=== PATIENT | male | born 1950 | race Caucasian/White ===

== ENCOUNTER → 2016-05-02 13:20 | Emergency (ER) | payer OTHER ==
[~2016-05-02 13:20] MED LIST: NS 0.9% IV ONE; PROTAMINE SULFATE IV ONE
--- NOTE | 2016-05-02 14:25 | RAD ---
Indication: Fall; altered mental status. Comparison: October 13, 2015 MRI. October 13, 2015 CT. Technique: Noncontrast CT vertex of skull through foramen magnum. Report: Large region of encephalomalacia involving the RIGHT middle cerebral artery distribution at the temporal and parietal lobes with associated small region of dystrophic calcification without change. Associated ex vacuo dilatation of the RIGHT lateral ventricle. Hyperdense 2.8 x 2.2 cm acute or subacute intra-axial hematoma at the posterior aspect of the LEFT temporal lobe. Associated effacement of the LEFT temporal lobe sulci and small volume of subarachnoid hemorrhage. Additionally small volume of subdural hemorrhage layers along the tentorium cerebelli. Negative for midline shift or effacement of the basal cisterns. Decreased density in the periventricular and subcortical white matter while nonspecific is most likely due to chronic microangiopathy. Unremarkable orbital contents. Negative for calvarial or skull base fracture. Small RIGHT parietal scalp hematoma.. IMPRESSION: 1. Acute or subacute intra-axial hematoma at the posterior aspect of the LEFT temporal lobe. Associated effacement of the LEFT temporal lobe sulci and small volume of subarachnoid and subdural hemorrhage. Negative for midline shift or effacement of the basal cisterns. This may reflect contrecoup injury given small RIGHT parietal scalp hematoma. Alternative etiologies include hypertensive hemorrhage or hemorrhage secondary to amyloid angiopathy. 2. Extensive grossly unchanged RIGHT middle cerebral artery distribution encephalomalacia reflecting a previous infarct. Involutional change and stigmata of chronic small vessel ischemic disease. Results discussed with Dr. Hernandez 05/02/2016 2:20 PM EDT
[2016-05-02 15:17] LABS: Hematocrit 42 % (42-52); Hemoglobin 13.4 g/dl (14.0-18.0); Mean Corpuscular HGB Conc 32 g/dl (31-36); Mean Corpuscular Hemoglobin 29 pg (27-31); Mean Corpuscular Volume 90 fL (80-94); Mean Platelet Volume 8 um3 (7.4-10.4); Red Cell Distribution Width 15 % (10.5-15)
--- NOTE | 2016-05-02 15:20 | ED ---
Guerrero Quintero SooYoung, scribed for Romel Hernandez MD on 05/02/16 at 1344 . Altered Mental Status - HPI Summary HPI Summary: LEVEL 5 CAVEAT: Limited HPI due to patient condition, dementia/AMS. A 65 y/o BIBA presents to ED after an unwitnessed fall onset approx 0900. Pert PMHx: dementia. Pt has a small lac to the R-side of his head. Pt is on blood thinners. His change in behavior is that pt is typically combative but is not currently. - History Of Current Complaint Stated Complaint: FALL AMS Time Seen by Provider: 05/02/16 13:31 Hx Obtained From: EMS, Medical Records - Allergies/Home Medications Allergies/Adverse Reactions: Allergies Allergy/AdvReac Type Severity Reaction Status Date / Time No Known Allergies Allergy Verified 10/13/15 09:56 PMH/Surg Hx/FS Hx/Imm Hx Previously Healthy: No - LEVEL 5 CAVEAT: Limited PMHx due to patient condition, dementia/AMS. Cardiovascular History: Reports: Hx Hypertension Denies: Hx Pacemaker/ICD Musculoskeletal History: Reports: Hx Arthritis - hands Sensory History: Reports: Hx Contacts or Glasses - at home, Hx Deafness Denies: Hx Hearing Aid Opthamlomology History: Reports: Hx Contacts or Glasses - at home Psychiatric History: Denies: Hx Panic Disorder - Immunization History Date of Tetanus Vaccine: unknown Date of Influenza Vaccine: never - Family History Known Family History: Positive: Unknown - Pt denies having family - Social History Occupation: Disabled Alcohol Use: None Hx Substance Use: Yes Substance Use Type: Reports: Marijuana Substance Use Comment - Amount & Last Used: 2-4 joints a day, daily user Hx Tobacco Use: Yes - ALSO WEED Smoking Status (MU): Current Every Day Smoker Type: Cigarettes Have You Smoked in the Last Year: Yes Review of Systems - ROS Summary Review of Systems Summary: LEVEL 5 CAVEAT: Limited ROS due to patient condition, dementia/AMS. Positive: Other - lac to R-side of head All Other Systems Reviewed And Are Negative: Yes Physical Exam - Summary Physical Exam Summary: LEVEL 5 CAVEAT: Limited PE due to patient condition, dementia/AMS. Triage Information Reviewed: Yes Vital Signs On Initial Exam: Initial Vitals Temp Pulse Resp BP Pulse Ox 98.4 F 85 16 138/76 97 05/02/16 13:42 05/02/16 13:42 05/02/16 13:42 05/02/16 13:42 05/02/16 13:42 Vital Signs Reviewed: Yes Completion Of Physical Exam Limited Due To: Dementia, Altered Mental Status Appearance: Positive: Well-Appearing, No Pain Distress Skin: Positive: Warm, Skin Color Reflects Adequate Perfusion, Dry, Other - pos: small lac on R posterior occipital area; small skin tear on R elbow and R posterior shoulder Eyes: Positive: Normal ENT: Positive: Normal ENT inspection Neck: Positive: Supple, Nontender Respiratory/Lung Sounds: Positive: Clear to Auscultation, Breath Sounds Present Cardiovascular: Positive: RRR Abdomen Description: Positive: Nontender, Soft Bowel Sounds: Positive: Present Musculoskeletal: Positive: Strength/ROM Intact - FROM Diagnostics - Vital Signs Vital Signs Temp Pulse Resp BP Pulse Ox 05/02/16 13:42 98.4 F 85 16 138/76 97 - Laboratory Result Diagrams: 05/02/16 15:05 Lab Statement: Any lab studies that have been ordered have been reviewed, and results considered in the medical decision making process. - CT BRAIN CT CT Interpretation: Positive (See Comments) - IMPRESSION: 1. Acute or subacute intra-axial hematoma at the posterior aspect of the LEFT temporal lobe. Associated effacement of the LEFT temporal lobe sulci and small volume of subarachnoid and subdural hemorrhage. Negative for midline shift or effacement of the basal cisterns. This may reflect contrecoup injury given small RIGHT parietal scalp hematoma. Alternative etiologies include hypertensive hemorrhage or hemorrhage secondary to amyloid angiopathy. 2. Extensive grossly unchanged RIGHT middle cerebral artery distribution encephalomalacia reflecting a previous infarct. Involutional change and stigmata of chronic small vessel ischemic disease. CT Interpretation Completed By: Radiologist Altered Mental Statu Course/Dx - Course Course Of Treatment: Mr. Kumar was sent over after a fall and head injury because he is not as combative as usual. He has dementia and is normally irascible. He is a full code. On arrival, it was noted that he has a small occipitoparietal hematoma and laceration. He was sent for CT and it revealed a contrecoup intracerebral hemorrhage. Dr. Serna is not aeronautical engineering officer this weekend and therefore [facility] was contacted and accepted transfer. Mr. Kumar is on lovenox 40 mgs SQ every evening. Since this is a low dose and it was 18 hours ago I am not giving him reversal agents at this time. - Diagnoses Discharge Diagnoses: Intracerebral hemorrhage - Provider Notifications Discussed Care Of Patient With: Dr. Fair at [facility] Time Discussed With Above Provider: 14:28 Instructed by Provider To: Transfer Admit/Transition Orders Completed By ED Provider: Yes Reason For Transfer: [place] [facility] [place] aeronautical engineering officer. Discharge - Discharge Plan Condition: Stable Disposition: TRANS HIGHER LVL OF CARE FAC Referrals: No Primary Care Phys,NOPCP [Primary Care Provider] - The documentation as recorded by the Guerrero peter SooYoung accurately reflects the service I personally performed and the decisions made by me, Romel Hernandez MD.
[2016-05-02 15:30] VITALS: BP 140/78
[2016-05-02 15:31] LABS: Albumin 3.5 g/dL (3.2-5.2); BUN/Creatinine Ratio 24.6 (8-20); Calcium 9.6 mg/dL (8.6-10.3); EGFR African American 183.4 (>60); EGFR Non-African American 142.6 (>60); Globulin 4.8 g/dL (2-4); Potassium 4.3 mmol/L (3.5-5.0); Total Bilirubin 0.5 mg/dL (0.2-1.0); Total Protein 8.3 g/dL (6.4-8.9)
== END | disposition short-term general hospital (02) ==
LOC: ED 13:20
DX: S06.300A Unspecified focal traumatic brain injury without loss of consciousness, initial encounter (principal); S01.91XA Laceration without foreign body of unspecified part of head, initial encounter; F03.90 Unspecified dementia, unspecified severity, without behavioral disturbance, psychotic disturbance, mood disturbance, and anxiety; W19.XXXA Unspecified fall, initial encounter; Y92.9 Unspecified place or not applicable; Z79.01 Long term (current) use of anticoagulants; F17.210 Nicotine dependence, cigarettes, uncomplicated
CPT/HCPCS: 36415; 70450; 80053; 85025; 85610; 99283

== ENCOUNTER 2016-05-17 09:03 | Emergency (ER) | payer OTHER ==
[2016-05-17 10:08] LABS: Hematocrit 47 % (42-52); Hemoglobin 15.2 g/dl (14.0-18.0); Mean Corpuscular HGB Conc 33 g/dl (31-36); Mean Corpuscular Hemoglobin 29 pg (27-31); Mean Corpuscular Volume 89 fL (80-94); Mean Platelet Volume 9 um3 (7.4-10.4); Red Blood Count 5.23 10^6/ul (4.0-5.4); Red Cell Distribution Width 15 % (10.5-15)
[2016-05-17 10:17] LABS: Potassium 4.1 mmol/L (3.5-5.0)
[2016-05-17 10:56] LABS: Albumin 3.4 g/dL (3.2-5.2); BUN/Creatinine Ratio 26.2 (8-20); Calcium 9.5 mg/dL (8.6-10.3); EGFR African American 169.6 (>60); EGFR Non-African American 131.8 (>60); Globulin 4.5 g/dL (2-4); Total Bilirubin 0.6 mg/dL (0.2-1.0); Total Protein 7.9 g/dL (6.4-8.9)
--- NOTE | 2016-05-17 10:59 | ED ---
Head Injury - HPI Summary HPI Summary: Patient is a resident of [facility] with a history of frequent falls. He is BIBA for a possible fall today due to the laceration to his left forehead. Patient is combative at baseline and if is not combative, he is considered to be altered. Patient is not verbal. - History Of Current Complaint Chief Complaint: EDLacSutureRecheck Stated Complaint: FALL / HEAD LAC Time Seen by Provider: 05/17/16 09:24 Hx Obtained From: EMS Hx From Patient Unobtainable Due To: Dementia Mechanism Of Injury: Fall From A Standing Position Onset/Duration: Started Hours Ago Onset of Pain: Immediate Severity Currently: Moderate Severity Initially: Mild Pain Intensity: 0 Location of Head Injury: Frontal Location: Discrete At: - mid forehead Character: Sharp, Aching Aggravating Factor(s): Movement Associated Signs And Symptoms: Swelling, Bruising - Allergies/Home Medications Allergies/Adverse Reactions: Allergies Allergy/AdvReac Type Severity Reaction Status Date / Time No Known Allergies Allergy Verified 10/13/15 09:56 PMH/Surg Hx/FS Hx/Imm Hx Cardiovascular History: Reports: Hx Hypertension Denies: Hx Pacemaker/ICD Musculoskeletal History: Reports: Hx Arthritis - hands Sensory History: Reports: Hx Contacts or Glasses - at home, Hx Deafness Denies: Hx Hearing Aid Opthamlomology History: Reports: Hx Contacts or Glasses - at home Psychiatric History: Denies: Hx Panic Disorder - Immunization History Date of Tetanus Vaccine: unknown Date of Influenza Vaccine: never Infectious Disease History: No Infectious Disease History: Denies: Traveled Outside the [place] in Last 30 Days - Family History Known Family History: Positive: Unknown - Pt denies having family - Social History Occupation: Disabled Lives: At [employer] Alcohol Use: None Hx Substance Use: Yes Substance Use Type: Reports: Marijuana Substance Use Comment - Amount & Last Used: 2-4 joints a day, daily user Hx Tobacco Use: Yes - ALSO WEED Smoking Status (MU): Current Every Day Smoker Type: Cigarettes Have You Smoked in the Last Year: Yes Review of Systems Negative: Photophobia, Blurred Vision Positive: Edema - forehead Positive: Bruising - forehead and nose, Other - laceration mid forehead and nasal bridge All Other Systems Reviewed And Are Negative: Yes Physical Exam Triage Information Reviewed: Yes Vital Signs On Initial Exam: Initial Vitals Temp Pulse Resp BP Pulse Ox 98.1 F 79 18 116/79 97 05/17/16 09:13 05/17/16 09:13 05/17/16 09:13 05/17/16 09:13 05/17/16 09:13 Vital Signs Reviewed: Yes Appearance: Positive: Well-Appearing, Well-Nourished, Pain Distress Skin: Positive: Warm, Skin Color Reflects Adequate Perfusion, Dry, Tender - 2cm laceration to forehead; 1cm laceration to nasal bridge, Soft Head/Face: Positive: Normal Head/Face Inspection Eyes: Positive: EOMI, CLAUDIA, Conjunctiva Clear ENT: Positive: Hearing grossly normal, Pharynx normal, TMs normal Neck: Positive: Supple, Nontender Respiratory/Lung Sounds: Positive: Clear to Auscultation, Breath Sounds Present Cardiovascular: Positive: RRR Abdomen Description: Positive: Nontender, Soft Bowel Sounds: Positive: Present Musculoskeletal: Positive: Strength/ROM Intact Neurological: Positive: Sensory/Motor Intact, CN Intact II-III - grossly. Negative: Alert, Oriented to Person Place, Time - baseline Psychiatric: Positive: Normal - confrontational at baseline AVPU Assessment: Alert - Hughes Coma Scale Coma Scale Total: 12 Procedures - Laceration/Wound Repair 1 Location: face Description: Linear Anesthesia: Local, 2.0%, Lido, Epi Length, Depth and Shape: 2 cm long, 4mm deep, 3mm wide Betadine Prep?: No Irrigated w/ Saline (ccs): 200 Laceration/Wound Explored: clean Closure: Single Layer Debridement: minimal Suture Type: Nylon - 6.0 Number of Sutures: 7 Layer Closure?: No Sterile Dressing Applied?: Yes 2 Location: face Description: Linear Length, Depth and Shape: 1 cm long, 1mm wide, 1mm deep Betadine Prep?: No Irrigated w/ Saline (ccs): 100 Laceration/Wound Explored: clean Closure: SteriStrips - 2 Debridement: minimal Layer Closure?: No Sterile Dressing Applied?: No Diagnostics - Vital Signs Vital Signs Temp Pulse Resp BP Pulse Ox 05/17/16 09:13 98.1 F 79 18 116/79 97 - Laboratory Lab Results: Lab Results 05/17/16 05/17/16 05/17/16 Range/Units 09:55 09:55 09:55 WBC 7.0 (3.5-10.8) 10^3/ul RBC 5.23 (4.0-5.4) 10^6/ul Hgb 15.2 (14.0-18.0) g/dl Hct 47 (42-52) % MCV 89 (80-94) fL MCH 29 (27-31) pg MCHC 33 (31-36) g/dl RDW 15 (10.5-15) % Plt Count 209 (150-450) 10^3/ul MPV 9 (7.4-10.4) um3 Neut % (Auto) 71.5 (38-83) % Lymph % (Auto) 19.1 L (25-47) % Ceiba % (Auto) 8.0 (1-9) % Eos % (Auto) 0.5 (0-6) % Baso % (Auto) 0.9 (0-2) % Absolute Neuts (auto) 5.0 (1.5-7.7) 10^3/ul Absolute Lymphs (auto) 1.3 (1.0-4.8) 10^3/ul Absolute Monos (auto) 0.6 (0-0.8) 10^3/ul Absolute Eos (auto) 0 (0-0.6) 10^3/ul Absolute Basos (auto) 0.1 (0-0.2) 10^3/ul Absolute Nucleated RBC 0 10^3/ul Nucleated RBC % 0.1 INR (Anticoag Therapy) 1.10 (0.89-1.11) Sodium 137 (133-145) mmol/L Potassium 4.1 (3.5-5.0) mmol/L Chloride 103 (101-111) mmol/L Carbon Dioxide Pending Anion Gap Pending BUN Pending Creatinine Pending Est GFR ( Amer) Pending Est GFR (Non-Af Amer) Pending BUN/Creatinine Ratio Pending Glucose Pending Calcium Pending Total Bilirubin Pending AST Pending ALT Pending Alkaline Phosphatase Pending Total Protein Pending Albumin Pending Globulin Pending Albumin/Globulin Ratio Pending Result Diagrams: 05/17/16 09:55 05/17/16 09:55 Lab Statement: Any lab studies that have been ordered have been reviewed, and results considered in the medical decision making process. - CT No standard instances CT Interpretation: No Acute Changes CT Interpretation Completed By: Radiologist Head Injury Course/Dx - Diagnoses Differential Diagnosis/HQI/PQRI: Cerebral Contusion, Cervical Sprain, Contusion , Hematoma, Intracranial Bleed, Nasal Fracture, Skull Fracture Provider Diagnoses: Forehead laceration, Laceration of nose, Head injury Discharge - Discharge Plan Condition: Stable Disposition: HOME Patient Education Materials: Head Injury (ED), Facial Laceration (ED) Additional Instructions: Keep your dressing clean, dry and in place for the next 24 hours. You may then remove and shower. Pat dry and cover with a clean, dry band-aid if you are going to be in a "dirty" environment, otherwise it can remain open to air. Do not soak the wound in any body of water until the sutures are removed. Elevate the head above your heart and Tylenol to reduce pain and swelling. Follow-up with your primary care provider or return to the emergency department in 5 days for suture removal. Return to the emergency department sooner if your symptoms worsen.
--- NOTE | 2016-05-17 11:07 | RAD ---
INDICATION: Frequent falls. CVA. COMPARISON: CT brain May 02, 2016 TECHNIQUE: Noncontrast axial source images were acquired from the skull base to the vertex. FINDINGS: Ventricles/sulci: There is cortical atrophy with compensatory dilatation of the CSF spaces. Brain parenchyma: Old right posterior parietal infarct with encephalomalacia. There are associated dystrophic calcifications there are chronic microvascular periventricular and subcortical white matter changes as well. Intracranial hemorrhage: Resolving left temporoparietal intracranial hemorrhage. Extra-axial spaces: Chronic hematoma. Hematoma with interval increase in size using mild localized mass effect. Calvarium: There is no calvarial fracture or other calvarial abnormality. Scalp: There is no evidence of scalp or extracalvarial soft tissue abnormality. Paranasal sinuses/mastoid: Sinusitis with acute and chronic findings. Air-fluid levels are present in the sphenoid air cells. Other: Several tiny punctate foci of intracranial air on the cortical surface is a left frontal region and near the left orbital apex. This is of unknown significance. IMPRESSION: 1. Old right posterior parietal infarct in addition to chronic microvascular ischemic changes. 2. Resolving left temporoparietal intracranial hemorrhage. 3. Interval increase in size in chronic left frontoparietal subdural hematoma. 4. Scattered pneumocephalus of unknown significance. Suggest follow-up.
[2016-05-17 14:39] VITALS: BP 114/66
== END 2016-05-17 11:55 | disposition home or self-care (01) ==
LOC: ED 09:03
DX: S00.83XA Contusion of other part of head, initial encounter (principal); R60.0 Localized edema; S01.81XA Laceration without foreign body of other part of head, initial encounter; W19.XXXA Unspecified fall, initial encounter; Y93.9 Activity, unspecified; Y92.9 Unspecified place or not applicable; F80.9 Developmental disorder of speech and language, unspecified; F17.210 Nicotine dependence, cigarettes, uncomplicated
CPT/HCPCS: 12011; 36415; 70450; 80053; 83605; 85025; 85610; 99284

== ENCOUNTER 2016-05-18 02:41 | Emergency (ER) | payer OTHER ==
--- NOTE | 2016-05-18 03:12 | ED ---
London Quintero Salem, scribed for Shaan Rahman MD on 05/18/16 at 0250 . Adult Trauma - HPI Summary HPI Summary: Patient is a 65 y/o male who presents to the ED per EMS s/p a fall. Pt is a resident of [facility] and has a hx of frequent falls. He was also in the ED earlier today for another fall. Per EMS, pt had unequal pupils after fall, but EMS was not able to confirm complaint. - History of Current Complaint Chief Complaint: EDHeadInjury Stated Complaint: FALL Time Seen by Provider: 05/18/16 02:43 Hx Obtained From: EMS Mechanism of Injury: Fall Loss of Consciousness: no loss of consciousness Onset/Duration: Started Minutes Ago, Still Present Onset Severity: Moderate Current Severity: Moderate Pain Intensity: 0 Pain Scale Used: 0-10 Numeric Aggravating Factor(s): Nothing Alleviating Factor(s): Nothing Associated Signs & Symptoms: Positive: Negative - Additional Pertinent History Primary Care Physician: [id number] - Allergy/Home Medications Allergies/Adverse Reactions: Allergies Allergy/AdvReac Type Severity Reaction Status Date / Time No Known Allergies Allergy Verified 10/13/15 09:56 PMH/Surg Hx/FS Hx/Imm Hx Cardiovascular History: Reports: Hx Hypertension Denies: Hx Pacemaker/ICD Musculoskeletal History: Reports: Hx Arthritis - hands Sensory History: Reports: Hx Contacts or Glasses - at home, Hx Deafness Denies: Hx Hearing Aid Opthamlomology History: Reports: Hx Contacts or Glasses - at home Psychiatric History: Denies: Hx Panic Disorder - Immunization History Date of Tetanus Vaccine: unknown Date of Influenza Vaccine: never Infectious Disease History: No Infectious Disease History: Denies: Traveled Outside the [place] in Last 30 Days - Family History Known Family History: Positive: Unknown - Pt denies having family. - Social History Alcohol Use: None Hx Substance Use: Yes Substance Use Type: Reports: Marijuana Substance Use Comment - Amount & Last Used: 2-4 joints a day, daily user Hx Tobacco Use: Yes - ALSO WEED Smoking Status (MU): Current Every Day Smoker Type: Cigarettes Have You Smoked in the Last Year: Yes Review of Systems Negative: Fever Positive: Other - Fall, possible injury to head. All Other Systems Reviewed And Are Negative: Yes Physical Exam Triage Information Reviewed: Yes Vital Signs On Initial Exam: Initial Vitals Temp Pulse Resp BP Pulse Ox 97.1 F 80 20 99/72 93 05/18/16 02:45 05/18/16 02:45 05/18/16 02:45 05/18/16 02:45 05/18/16 02:45 Vital Signs Reviewed: Yes Appearance: Positive: No Pain Distress, Thin Skin: Positive: Warm Head/Face: Positive: Other - healing scalp lac Eyes: Positive: CLAUDIA ENT: Positive: Hearing grossly normal Neck: Positive: Supple Respiratory/Lung Sounds: Positive: Breath Sounds Present, Decreased Breath Sounds Cardiovascular: Positive: RRR Abdomen Description: Positive: Nontender, Soft Bowel Sounds: Positive: Present Musculoskeletal: Positive: Strength/ROM Intact Neurological: Positive: Sensory/Motor Intact Diagnostics - Vital Signs Vital Signs Temp Pulse Resp BP Pulse Ox 05/18/16 02:45 97.1 F 80 20 99/72 93 - Laboratory Lab Statement: Any lab studies that have been ordered have been reviewed, and results considered in the medical decision making process. - CT BRAIN CT Interpretation Completed By: Radiologist - IMPRESSION: Acute to subacute infract left occipital and left temporal lobes, not significantly changed compared to 05/17/16. Tiny hyperdensities within infract could represent minimal hemorrhagic transformation versus artifact; advise continued follow-up. Bilateral subdural hygromas, 1sm think on left 8mm think on right. Right-sided extra-axial collections is new and could be secondary to trauma. No acute extra- axial hemorrhage. Stable 4 mm rightward midline shift that is probably chronic. Small pneumoecephalus no longer seen. Chronic infract right occipital and right parietal lobes with calcifications in parietal lobe. Age-related involutional changes. NO skull fracture. Right nasal fracture, possible chronic. Minimal bilateral scalp swelling appearing. Inflammation paranasal sinuses, including fluid in sphenoid sinuses. Visualized mastoid air cells clear. Adult Trauma Course/Dx - Course Course Of Treatment: 65 y/o male presents after a fall. CT was negative. Pt will be DC'd. - Diagnoses Provider Diagnoses: Closed head injury Discharge - Discharge Plan Condition: Fair Disposition: HOME Patient Education Materials: Head Injury (ED) Referrals: [facility] [Outside] Additional Instructions: FULL PRECAUTION. DO NOT ALLOW PT TO WANDER. The documentation as recorded by the London peter Salem accurately reflects the service I personally performed and the decisions made by me, Shaan Rahman MD.
[2016-05-18 05:09] VITALS: BP 124/68
--- NOTE | 2016-05-18 08:21 | RAD ---
INDICATION: Trauma. COMPARISON: Comparison is made with prior CTs of the brain from May 02, 2016 and May 17, 2016. TECHNIQUE: Contiguous axial sections of the brain were obtained from the skull base to the vertex without contrast. FINDINGS: There are bilateral subdural hygromas. The subdural hygroma on the left side appears unchanged and the subdural hygroma on the right side appears new. These measure approximately 0.8 cm each. There is a moderate to large area of encephalomalacia present in the posterior right parietal and adjacent temporal lobes most consistent with an old infarct. There is focal decreased density in the left temporal lobe. There was a prior intraparenchymal hematoma in this region. Best seen on the study from May 02, 2016. There are minimal residual hyperdensity is made which likely represent resolving hematoma. Recommend close follow-up. There is focal soft tissue swelling in the scalp anterior to the left frontal bone and posterior to the right parietal bone. No fracture is seen. The visualized portion of the paranasal sinuses and mastoid air cells appear clear. IMPRESSION: 1. BILATERAL SUBDURAL HYGROMAS NEW ON THE RIGHT, UNCHANGED ON THE LEFT. THE RIGHT-SIDED SUBDURAL HYGROMA MAY BE SECONDARY TO TRAUMA. 2. HYPODENSE AREA IN THE RIGHT TEMPORAL LOBE LIKELY REPRESENTING AN EVOLVING HEMORRHAGIC INFARCT ALTHOUGH NONSPECIFIC. RECOMMEND CLOSE FOLLOW-UP. IF THIS DOES NOT RESOLVE CONSIDER MR IMAGING. 3. MODERATE TO LARGE OLD RIGHT PARIETAL LOBE INFARCT.
== END 2016-05-18 05:08 | disposition home or self-care (01) ==
LOC: ED 02:41
DX: S09.90XA Unspecified injury of head, initial encounter (principal); W19.XXXA Unspecified fall, initial encounter; Y93.9 Activity, unspecified; Y92.9 Unspecified place or not applicable; F17.210 Nicotine dependence, cigarettes, uncomplicated
CPT/HCPCS: 70450; 99284

== ENCOUNTER 2016-05-30 13:03 | Emergency (ER) | payer OTHER ==
--- NOTE | 2016-05-30 14:48 | RAD ---
HISTORY: Altered mental status, status post fall COMPARISONS: May 18, 2016 TECHNIQUE: Multiple contiguous axial CT scans were obtained of the head without intravenous contrast. FINDINGS: The study is limited by patient motion artifact. HEMORRHAGE/INFARCT: There is no parenchymal hemorrhage or acute infarct. MASSES/SHIFT: There is no mass or shift. EXTRA-AXIAL SPACES: There are chronic appearing bilateral subdural fluid collections. These are stable from May 18, 2016 SULCI AND VENTRICLES: There is ex vacuo dilatation of the right lateral ventricle CEREBRUM: There is right temporal encephalomalacia. There is right parieto-occipital insufflation with associated dystrophic calcification. BRAINSTEM: There are no focal parenchymal abnormalities. CEREBELLUM: There are no focal parenchymal abnormalities. VESSELS: The vessels are grossly normal. PARANASAL SINUSES: The paranasal sinuses are clear. ORBITS: The orbits are unremarkable. BONES AND SOFT TISSUE: No bone or soft tissue abnormalities are noted. OTHER: None IMPRESSION: 1. STABLE CHRONIC BILATERAL SUBDURAL FLUID COLLECTIONS. THERE IS NO SHIFT 2. 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
--- NOTE | 2016-05-30 14:50 | RAD ---
HISTORY: Altered mental status, status post fall COMPARISONS: None TECHNIQUE: Multiple contiguous axial CT scans were obtained of the cervical spine without intravenous contrast, with coronal and sagittal multiplanar reformations. FINDINGS: BRAIN: The visualized brain is unremarkable CENTRAL CANAL: Evaluation of the central canal is limited on CT technique; however, there is no obvious canalicular mass or epidural hemorrhage. ALIGNMENT: The alignment is normal, without subluxation or dislocation. VERTEBRAL BODIES: There is multilevel anterolateral marginal osteophyte formation. There is no displaced fracture or dislocation. JOINTS: There is diffuse vertebral and facet osteoarthritic change. MUSCULATURE: Unremarkable INTERVERTEBRAL DISCS: There is diffuse loss of intervertebral disc height. AXIAL IMAGES: C2-C3: There is bilateral facet hypertrophy. There is mild bilateral neural foraminal narrowing. There is no significant osseous central canal stenosis. C3-C4: There is bilateral uncovertebral and facet hypertrophy. There is severe left and moderate to severe right neural foraminal narrowing. There is mild narrowing of the central canal. C4-C5: There is a broad-based disc osteophyte complex with bilateral uncovertebral and facet hypertrophy. There is severe bilateral neural foraminal narrowing. There is mild narrowing of the central canal. C5-C6: There is bilateral uncovertebral facet hypertrophy. There is severe bilateral neural foraminal narrowing. There is moderate narrowing of the central canal. C6-C7: There is bilateral uncovertebral and facet hypertrophy. There is severe left and moderate to severe right neuroforaminal narrowing. There is moderate narrowing of the central canal. C7-T1: There is bilateral uncovertebral and facet hypertrophy. There is severe bilateral neural foraminal narrowing. There is mild narrowing of the central canal. SOFT TISSUES: There is calcification of the carotid bifurcations. The prevertebral fat structures preserved. OTHER: None. IMPRESSION: DEGENERATIVE DISC DISEASE AND OSTEOARTHRITIS OF THE CERVICAL SPINE, DESCRIBED ABOVE. NO ACUTE OSSEOUS INJURY. CAROTID ATHEROSCLEROSIS.
--- NOTE | 2016-05-30 15:55 | ED ---
Elizabeth Quintero Anna, scribed for Onesimo Hicsk MD on 05/30/16 at 1456 . Head Injury - HPI Summary HPI Summary: Patient is a 65 y/o male BIBA to [facility] after the sudden onset of an unwitnessed fall that occurred this afternoon at the group home. He presents to [facility] with a laceration above his right eyebrow. He thinks he tripped and fell at home and that he lives alone. He denies LOC. He denies injury to his arm, which is bandaged from a previous fall. He currently takes Lovenox. He denies feeling tired. He denies other pain and repeats Ill be all right. Per group home report, the patient was found in his blood, with blood in the bathroom. At that time, the group home reported that the patient was alert and oriented to his usual self and able to move extremities when asked to do so. His history is significant for Alzheimers, dementia, CVA. LEVEL 5 CAVEAT UNABLE TO OBTAIN FULL HISTORY DUE TO HISTORY OF DEMENTIA. - History Of Current Complaint Chief Complaint: EDHeadInjury Stated Complaint: FALL Time Seen by Provider: 05/30/16 14:51 Hx Obtained From: Patient, EMS, Other: - [facility] report Hx From Patient Unobtainable Due To: Dementia Onset/Duration: Started Hours Ago, Still Present Onset of Pain: Immediate, Prior to Arrival - Allergies/Home Medications Allergies/Adverse Reactions: Allergies Allergy/AdvReac Type Severity Reaction Status Date / Time No Known Allergies Allergy Verified 10/13/15 09:56 PMH/Surg Hx/FS Hx/Imm Hx Cardiovascular History: Reports: Hx Hypertension Denies: Hx Pacemaker/ICD GI History: Reports: Other GI Disorders - Hx bladder and bowel incontinence Musculoskeletal History: Reports: Hx Arthritis - hands, Other Musculoskeletal History - Hx spinal stenosis in C region Sensory History: Reports: Hx Contacts or Glasses - at home, Hx Deafness Denies: Hx Hearing Aid Opthamlomology History: Reports: Hx Contacts or Glasses - at home EENT History: Reports: Hx Hearing Problem - Hx hearing loss Neurological History: Reports: Hx Developmental Delay Psychiatric History: Reports: Hx Post Traumatic Stress Disorder, Hx Substance Abuse - EtOH abuse, Other Psychiatric Issues/Disorders - Personality disorder Denies: Hx Panic Disorder - Immunization History Date of Tetanus Vaccine: unknown Date of Influenza Vaccine: never Infectious Disease History: Unable to Obtain/Confirm Infectious Disease History: Denies: Traveled Outside the [place] in Last 30 Days - Family History Known Family History: Positive: Unknown - LEVEL 5 CAVEAT - UNABLE TO OBTAIN FULL HX DUE TO HISTORY OF DEMENTIA - Social History Occupation: Retired Lives: [facility] Alcohol Use: None Hx Substance Use: Yes Substance Use Type: Reports: Marijuana Substance Use Comment - Amount & Last Used: 2-4 joints a day, daily user Hx Tobacco Use: Yes - ALSO WEED Smoking Status (MU): Current Every Day Smoker Type: Cigarettes Have You Smoked in the Last Year: Yes Review of Systems - ROS Summary Review of Systems Summary: LEVEL 5 CAVEAT UNABLE TO OBTAIN FULL HISTORY DUE TO HISTORY OF DEMENTIA. Skin: Other - laceration All Other Systems Reviewed And Are Negative: No Physical Exam Triage Information Reviewed: Yes Vital Signs On Initial Exam: Initial Vitals Temp Pulse Resp BP Pulse Ox 99.6 F 87 18 97/72 93 05/30/16 13:24 05/30/16 13:24 05/30/16 13:24 05/30/16 13:24 05/30/16 13:24 Vital Signs Reviewed: Yes Appearance: Positive: Well-Appearing, No Pain Distress Skin: Positive: Warm, Skin Color Reflects Adequate Perfusion, Dry, Other - 1.5 cm laceration above right eyebrow. Steristrips placed. Patient declined further care of the laceration. Head/Face: Positive: Other - 1.5 cm laceration above right eyebrow. Steristrips placed. Patient declined further care of the laceration. Eyes: Positive: EOMI, CLAUDIA ENT: Positive: Normal ENT inspection Neck: Positive: Supple, Nontender Respiratory/Lung Sounds: Positive: Clear to Auscultation, Breath Sounds Present Cardiovascular: Positive: RRR Abdomen Description: Positive: Nontender, Soft Bowel Sounds: Positive: Present Musculoskeletal: Positive: Normal - Patient is moving all exremities at this time., Strength/ROM Intact Neurological: Positive: Normal, Sensory/Motor Intact, Alert, Oriented to Person Place, Time Psychiatric: Positive: Affect/Mood Appropriate Diagnostics - Vital Signs Vital Signs Temp Pulse Resp BP Pulse Ox 05/30/16 13:39 99.6 F 87 16 97/72 93 05/30/16 13:24 99.6 F 87 18 97/72 93 - Laboratory Lab Statement: Any lab studies that have been ordered have been reviewed, and results considered in the medical decision making process. - CT C-Spine CT CT Interpretation: Positive (See Comments) CT Interpretation Completed By: Radiologist - IMPRESSION: DEGENERATIVE DISC DISEASE AND OSTEOARTHRITIS OF THE CERVICAL SPINE, DESCRIBED ABOVE. NO ACUTE OSSEOUS INJURY. CAROTID ATHEROSCLEROSIS. Brain CT CT Interpretation: Positive (See Comments) CT Interpretation Completed By: Radiologist - IMPRESSION: 1. STABLE CHRONIC BILATERAL SUBDURAL FLUID COLLECTIONS. THERE IS NO SHIFT 2. 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 Head Injury Course/Dx Course Of Treatment: NO CRITICAL CARE TIME. Assessment/Plan: PER NURSING DISCUSSIONS WITH BLESSING, PATIENT IS AT BASELINE BEHAVIOR. PATIENT HAS RT TEMPORAL FACE LACERATION CLOSED WITH STERISTRIPS AND IS NOT BLEEDING. PATIENT DECLINED FURTHER CARE OF THE LACERATION. DISCHARGE HOME STABLE AT BASELINE. - Diagnoses Provider Diagnoses: Head injury, Laceration Discharge - Discharge Plan Condition: Stable Disposition: HOME Patient Education Materials: Laceration (ED), Head Injury (ED) Referrals: No Primary Care Phys,NOPCP [Primary Care Provider] - Additional Instructions: FOLLOW UP WITH YOUR DOCTOR. RETURN TO THE EMERGENCY DEPARTMENT FOR ANY WORSENING OF YOUR CONDITION; WEAKNESS , NUMBNESS, YOU FEEL ILL OR QUESTIONS OR CONCERNS. The documentation as recorded by the Elizabeth peter Anna accurately reflects the service I personally performed and the decisions made by me, Onesimo Hicks MD.
[2016-05-30 16:14] VITALS: BP 90/66
== END 2016-05-30 16:12 | disposition home or self-care (01) ==
LOC: ED 13:03
DX: S09.90XA Unspecified injury of head, initial encounter (principal); M50.30 Other cervical disc degeneration, unspecified cervical region; W19.XXXA Unspecified fall, initial encounter; Y93.9 Activity, unspecified; Y92.9 Unspecified place or not applicable; Z87.891 Personal history of nicotine dependence; M47.9 Spondylosis, unspecified; G30.9 Alzheimer's disease, unspecified; F02.80 Dementia in other diseases classified elsewhere, unspecified severity, without behavioral disturbance, psychotic disturbance, mood disturbance, and anxiety
CPT/HCPCS: 70450; 72125; 99282

== ENCOUNTER 2016-06-26 12:01 | Emergency (ER) | payer OTHER ==
--- NOTE | 2016-06-26 12:50 | RAD ---
INDICATION: Altered mental status. COMPARISON: Comparison is made with prior study from October 13, 2015. TECHNIQUE: A portable view of the chest was obtained. FINDINGS: Cardiac and mediastinal contours appear to be within normal limits. The lungs are clear. No pleural effusion is seen. IMPRESSION: NO EVIDENCE FOR ACUTE DISEASE.
--- NOTE | 2016-06-26 13:52 | RAD ---
INDICATION: Altered mental status. COMPARISON: Comparison is made with a prior CT of the brain from May 30, 2016. TECHNIQUE: Contiguous axial sections of the brain were obtained from the skull base to the vertex without contrast. FINDINGS: The ventricles, cisterns and sulci are prominent consistent with diffuse atrophy. There is a focal area of decreased density in the posterior right parietal and adjacent temporal lobes which appears to have enlarged from the prior exam most consistent with subacute on chronic infarcts. No mass effect or hemorrhage is present. There are bilateral extra-axial fluid collections adjacent to the frontal and parietal lobes most consistent with subdural hygromas. The right-sided collection has decreased in size from the prior study. The left-sided collection appears similar in size. No significant focal osseous abnormality is seen. The visualized portion of the paranasal sinuses and mastoid air cells appear clear. IMPRESSION: 1. INCREASED SIZE OF THE HYPODENSE AREA IN THE POSTERIOR RIGHT PARIETAL AND TEMPORAL LOBES MOST CONSISTENT WITH SUBACUTE AND CHRONIC INFARCTS. 2. BILATERAL SUBDURAL HYGROMAS SLIGHT DECREASE IN SIZE ON THE RIGHT SIDE.
[2016-06-26 14:02] LABS: Albumin 2.9 g/dL (3.2-5.2); BUN/Creatinine Ratio 23.5 (8-20); Calcium 8.9 mg/dL (8.6-10.3); EGFR African American 208.5 (>60); EGFR Non-African American 162.1 (>60); Globulin 3.9 g/dL (2-4); Hematocrit 41 % (42-52); Hemoglobin 13.7 g/dl (14.0-18.0); Mean Corpuscular HGB Conc 33 g/dl (31-36); Mean Corpuscular Hemoglobin 29 pg (27-31); Mean Corpuscular Volume 87 fL (80-94); Mean Platelet Volume 9 um3 (7.4-10.4); Potassium 4.5 mmol/L (3.5-5.0); Red Blood Count 4.73 10^6/ul (4.0-5.4); Red Cell Distribution Width 16 % (10.5-15); Total Bilirubin 0.5 mg/dL (0.2-1.0); Total Protein 6.8 g/dL (6.4-8.9)
[2016-06-26 14:04] LABS: Troponin I 0.01 ng/mL (<0.04)
[2016-06-26 16:22] VITALS: BP 119/72
--- NOTE | 2016-06-27 14:34 | ED ---
Guerrero Quintero SooYoung, scribed for Santos Gallegos MD on 06/26/16 at 1325 . Neurological HPI - HPI Summary HPI Summary: LEVEL 5 CAVEAT: HPI LIMITED DUE TO PT CONDITION, DEMENTIA. A 65 y/o M DORIAN presents to ED for a suspected fall at [facility]. Pt was found on the ground. He is on blood thinners. He denies pain, other than being hungry. - History of Current Complaint Chief Complaint: EDGeneral Stated Complaint: POSSIBLE FALL, AMS PER NORMAL Time Seen by Provider: 06/26/16 12:11 Hx Obtained From: Patient, EMS - Additional Pertinent History Primary Care Physician: [id number] - Allergy/Home Medications Allergies/Adverse Reactions: Allergies Allergy/AdvReac Type Severity Reaction Status Date / Time No Known Allergies Allergy Verified 10/13/15 09:56 PMH/Surg Hx/FS Hx/Imm Hx Previously Healthy: No Cardiovascular History: Reports: Hx Hypertension Denies: Hx Pacemaker/ICD GI History: Reports: Other GI Disorders - Hx bladder and bowel incontinence Musculoskeletal History: Reports: Hx Arthritis - hands, Other Musculoskeletal History - Hx spinal stenosis in C region Sensory History: Reports: Hx Contacts or Glasses - at home, Hx Deafness, Hx Hearing Problem - Hx hearing loss Denies: Hx Hearing Aid Opthamlomology History: Reports: Hx Contacts or Glasses - at home Neurological History: Reports: Hx Developmental Delay Psychiatric History: Reports: Hx Post Traumatic Stress Disorder, Hx Substance Abuse - EtOH abuse, Other Psychiatric Issues/Disorders - Personality disorder Denies: Hx Panic Disorder - Immunization History Date of Tetanus Vaccine: unknown Date of Influenza Vaccine: never Infectious Disease History: Unable to Obtain/Confirm Infectious Disease History: Denies: Traveled Outside the [place] in Last 30 Days - Family History Known Family History: Positive: Unknown - LEVEL 5 CAVEAT - UNABLE TO OBTAIN FULL HX DUE TO HISTORY OF DEMENTIA - Social History Occupation: Employed Part-time, Disabled Lives: Assisted Living - [facility] Alcohol Use: None Hx Substance Use: Yes Substance Use Type: Reports: Marijuana Substance Use Comment - Amount & Last Used: 2-4 joints a day, daily user Hx Tobacco Use: Yes - ALSO WEED Smoking Status (MU): Current Every Day Smoker Type: Cigarettes Have You Smoked in the Last Year: Yes Review of Systems - ROS Summary Review of Systems Summary: LEVEL 5 CAVEAT: ROS LIMITED DUE TO PT CONDITION, DEMENTIA. Negative: Fever Negative: Chest Pain Negative: Abdominal Pain Negative: dysuria, hematuria Negative: Myalgia All Other Systems Reviewed And Are Negative: No Physical Exam - Summary Physical Exam Summary: Constitutional: Well-developed, Well-nourished, Alert, Cooperative Skin: Warm, Dry HENT: Normocephalic; No Racoons eyes; No battles sign; No abrasion; No contusion ; No hemotympanum; No maxilla facial tenderness or instability; Dentition are smooth; No dental trauma; No trismus Eyes: EOM normal, PERRL Neck: Trachea is midline. No stridor; No JVD; No step off; No posterior cervical spine tenderness Cardio: Rhythm regular, rate normal Heart sounds normal; Intact distal pulses; The pedal pulses are 2+ and symmetric. Radial pulses are 2+ and symmetric. Pulmonary/Chest wall: Effort normal; Breath sounds normal; Equal chest rise; No flail segment; No rib tenderness; No sternal tenderness Abd: Soft, Appearance normal. No distension; No tenderness; No palpable pulsatile mass; No Cullens sign; No Sykes-Turners sign Musculoskeletal: Full ROM and no tenderness at hips, ankles, shoulders, elbows and knees; No joint swelling; No vertebral body tenderness; No paraspinal tenderness; No step off or deformity of the spine; Pelvis is stable to lateral compression and rock Neuro: Alert, Oriented x3, Strength 5/5 all extremities. : No blood at urethral meatus Psych: VERBALLY ABUSIVE, BASELINE DEMENTIA Triage Information Reviewed: Yes Vital Signs On Initial Exam: Initial Vitals Temp Pulse Resp BP Pulse Ox 99 F 81 20 95/64 96 06/26/16 12:07 06/26/16 12:07 06/26/16 12:07 06/26/16 12:07 06/26/16 12:07 Vital Signs Reviewed: Yes - Kinjal Coma Scale Coma Scale Total: 15 Diagnostics - Vital Signs Vital Signs Temp Pulse Resp BP Pulse Ox 06/26/16 13:19 73 16 94/63 97 06/26/16 12:54 79 20 91/62 95 06/26/16 12:17 95 06/26/16 12:07 99 F 81 20 95/64 96 - Laboratory Result Diagrams: 06/26/16 13:32 06/26/16 13:32 Lab Statement: Any lab studies that have been ordered have been reviewed, and results considered in the medical decision making process. - Radiology CXR Xray Interpretation: No Acute Changes - IMPRESSION: No evidence for acute dz. Radiology Interpretation Completed By: Radiologist - CT BRAIN CT Interpretation: Positive (See Comments) - IMPRESSION: 1. INCREASED SIZE OF THE HYPODENSE AREA IN THE POSTERIOR RIGHT PARIETAL AND TEMPORAL LOBES MOST CONSISTENT WITH SUBACUTE AND CHRONIC INFARCTS. 2. BILATERAL SUBDURAL HYGROMAS SLIGHT DECREASE IN SIZE ON THE RIGHT SIDE. CT Interpretation Completed By: Radiologist Course/Dx - Course Course Of Treatment: Pt is a 65 y/o M BIBA presenting after a suspected fall at assisted living facility. Pt has baseline dementia. CXR is negative. Brain CT shows "1. INCREASED SIZE OF THE HYPODENSE AREA IN THE POSTERIOR RIGHT PARIETAL AND TEMPORAL LOBES MOST CONSISTENT WITH SUBACUTE AND CHRONIC INFARCTS. 2. BILATERAL SUBDURAL HYGROMAS SLIGHT DECREASE IN SIZE ON THE RIGHT SIDE.". Noted : BP is typically in 90s as it was in May, this appears to be his baseline. No WBCs. Trop is negative. No fever. No suprapubic tenderness. Do not suspect UTI. Will D/C home. - Diagnoses Provider Diagnoses: Fall, Dementia, Cerebral infarction, chronic Discharge - Discharge Plan Condition: Stable Disposition: HOME Referrals: No Primary Care Phys,NOPCP [Primary Care Provider] - The documentation as recorded by the Guerrero peter SooYoung accurately reflects the service I personally performed and the decisions made by me, Santos Gallegos MD.
== END 2016-06-26 16:20 | disposition home or self-care (01) ==
LOC: ED 12:01
DX: I63.9 Cerebral infarction, unspecified (principal); F03.90 Unspecified dementia, unspecified severity, without behavioral disturbance, psychotic disturbance, mood disturbance, and anxiety; F17.210 Nicotine dependence, cigarettes, uncomplicated
CPT/HCPCS: 36415; 70450; 71010; 80053; 83605; 84484; 85025; 85610; 85730; 87040; 99284